=== PATIENT | male | born 1995 | race Caucasian/White ===

== ENCOUNTER 2018-06-22 17:55 | Emergency (ER) | payer OTHER, SELFPAY ==
[2018-06-22 17:58] VITALS: BP 144/86; PULSE 70; RESP 18; TEMP 36.1; O2SAT 100; BMI 18.8
--- NOTE | 2018-06-22 18:47 | PC.NURSE ---
Reports that C-1 hurts when you push on it, sore throat and tongue has bumps on it.
--- NOTE | 2018-06-22 19:04 | ED_ITS ---
HPI - URI/Sore Throat General Chief Complaint: Upper Respiratory Symptoms Stated Complaint: Vertigo, hot/cold flashes, feeling off Time Seen by Provider: 06/22/18 18:45 Source: patient Mode of arrival: ambulatory Limitations: no limitations History of Present Illness HPI Narrative: This is a 23-year-old male who comes in with multiple complaints. Patient states that his ears have felt full, he felt like there has been some reading on the right side. He has felt a little bit dizzy, he has not had any fevers, he has not had any nasal congestion, he states that the back of his throat feels bumpy but does not feel sore. He denies any difficulty with swallowing. Patient has not had any sinus pressure or tenderness. He has not had any facial swelling or swelling of the ear. He has not had any chest pain or shortness of breath, no cold cough or congestion in the chest. No nausea, no vomiting. He has had some slight constipation. No swelling in his extremities or rashes. Patient does have a history significant for pericarditis which he states was linked to a viral illness. He has also had a history of pleurisy. He denies taking any medications currently. He denies any prior surgeries. Related Data Home Medications Medication Instructions Recorded Confirmed aspirin 325 mg PO PRN #0 04/02/17 Previous Rx's Medication Instructions Recorded naproxen 500 mg PO Q12HP PRN #14 tab 04/02/17 Allergies Allergy/AdvReac Type Severity Reaction Status Date / Time No Known Drug Allergies Allergy Verified 06/22/18 18:02 Review of Systems Review of Systems All systems reviewed & are unremarkable except as noted in HPI and below Constitutional Denies body ache(s), Denies chills, Denies fatigue, Denies fever(s), Denies headache(s), Denies lethargy, Denies night sweats and Denies weakness Eyes Reports blurry vision ENT Ears, Nose, Mouth, and Throat: Reports as per HPI, Denies vertigo, Reports dizziness, Denies ear discharge, Denies otalgia, Denies facial pain, Denies headache(s), Denies hearing loss, Denies hoarseness, Denies nasal congestion, Denies neck mass, Denies odynophagia, Denies post nasal drip, Reports tinnitus ( Right ear), Denies sinus pain, Denies sinus pressure, Denies sore throat, Denies throat swelling, Denies tongue swelling and Reports other (Throat is bumpy where he touches in the back.) Cardiovascular Denies chest pain and Denies dyspnea Respiratory Denies chest congestion, Denies cough, Denies excessive phlegm production, Denies dyspnea and Denies wheezing Gastrointestinal Gastrointestinal: Denies abdominal pain, Reports change in stool character, Reports constipation (Mild), Denies nausea, Denies odynophagia and Denies vomiting Genitourinary Denies difficulty urinating Musculoskeletal Denies abnormal gait, Denies numbness and Denies tingling Integumentary/Breasts Denies erythema and Denies rash Neurologic Reports as per HPI, Denies abnormal gait, Denies vertigo, Reports dizziness, Denies headache(s), Denies lack of coordination, Denies numbness, Denies tingling and Denies weakness Endocrine Denies fatigue Allergic/Immunologic Denies throat swelling, Denies tongue swelling and Denies wheezing PFSH Family History Mother Hyperlipidemia Social History Smoking Status: Former smoker Exam Narrative Exam Narrative: GEN: well nourished but then, well appearing male, alert and oriented x 3, patient appears to be in no acute distress. HEENT: Atraumatic, pupils are equal round reactive to light, extraocular movements are intact, nares are clear, TMs retracted bilaterally, there is a very minimal amount of fluid. There is no erythema of the canal or tympanic membrane, there is no pain with motion of the pinna. Throat is clear without any exudates, erythema, tonsillar enlargement or uvular deviation, no swelling. HEART: Regular rate and rhythm without murmur, clicks, rubs. LUNGS:Lungs clear to auscultation, no wheezes, rales, crackles, chest moves symmetrically ABD:bowel sounds normal, soft, non-tender, no guarding, rebound, rigidity, no masses noted, no hepatosplenomegaly MSCL: Non-tender, no muscle atrophy, full range of motion, normal gait NEURO:CN 2-12 intact, sensation normal Initial Vital Signs Initial Vital Signs: Vital Signs Temperature 97.0 F L 06/22/18 17:58 Pulse Rate 70 06/22/18 17:58 Respiratory Rate 18 06/22/18 17:58 Blood Pressure 144/86 H 06/22/18 17:58 Pulse Oximetry 100 06/22/18 17:58 Course Orders Ordered: ED Orders 06/22/18 18:45 Influenza A and B by PCR Rapid Stat Vital Signs - 8 hr 06/22/18 17:58 Temperature 97.0 F L Pulse Rate 70 Respiratory Rate 18 Blood Pressure 144/86 H Pulse Oximetry 100 MDM - URI/Sore Throat Lab Data Lab Results 06/22/18 Range/Units 18:45 Influenza A & B (PCR) Negative (Negative) Point of Care Testing Rapid Strep A Negative MDM Narrative Medical decision making narrative: Suspect that patient has some eustachian tube dysfunction although with the tenderness he may be having labyrinthitis, or similar issue. We discussed trying a [id number] antihistamine to see if this improves his symptoms. If they are continuing he needs to follow up with primary care. To rule out other causes. If he is having any worsening symptoms or concerning symptoms he is return to the ER and these were discussed with the patient. Discharge Plan Departure Patient Disposition: Home Clinical Impression: Acute dysfunction of both eustachian tubes Discharge Date/Time: 06/22/18 19:05 Interventions: ED Discharge Assessment Last Done: 06/22/18 19:04 Instructions: DI for Eustachian Tube Dysfunction-Adult Activity Restrictions/Additional Instructions: Follow-up with primary care in the next 3-5 days if your symptoms are not resolving. Take antihistamines either Benadryl, 1-2 tablets every 6-8 hours as needed for symptoms or you may take Claritin 1 tablet [id number] daily, this is less sedating. Return to the emergency department for fevers greater than 100.4, sudden severe headaches, swelling of the face or ear, sudden loss of hearing, difficulty swallowing or pain swallowing or other new or concerning symptoms. Prescriptions: No Action aspirin 325 MG tablet 325 mg PO PRN Qty: 0 RF: 0 naproxen 500 MG tablet 500 mg PO Q12HP PRNQty: 14 RF: 0 Referrals: Kathie Umana PA-C [Primary Care Provider] -
[2018-06-22 19:10] LABS: Influenza A and B by PCR Rapid Negative (Negative)
== END 2018-06-22 19:05 | disposition home or self-care (01) ==
PROVIDERS: Emergency Provider Emergency Medicine; PCP Physician Assistant
DX: H69.83 Other specified disorders of Eustachian tube, bilateral (principal)
CPT/HCPCS: 87400; 87880; 99282; 99283

== ENCOUNTER 2021-11-14 22:23 | Emergency (ER) | payer SELFPAY ==
[2021-11-14 22:34] VITALS: BP 127/99; PULSE 95; RESP 17; TEMP 36.9; O2SAT 100; BMI 23.0
--- NOTE | 2021-11-14 22:45 | ED.ANIMALBIT ---
HPI - Animal Bite General Chief Complaint: Animal Bite Stated Complaint: hiccups for last 3 days, unable to drink today Time Seen by Provider: 11/14/21 22:44 Source: patient Mode of arrival: Ambulatory Related Data Home Medications Medication Instructions Recorded Confirmed aspirin 325 mg tablet 325 mg PO PRN #0 04/02/17 Previous Rx's Medication Instructions Recorded naproxen 500 mg tablet 500 mg PO Q12HP PRN #14 tab 04/02/17 Allergies Allergy/AdvReac Type Severity Reaction Status Date / Time No Known Drug Allergies Allergy Verified 06/22/18 18:02 Patient History Family History (Updated 02/28/17 @ 00:00 by Kathie Umana PA-C) Mother Hyperlipidemia Social History Smoking Status: Former smoker Smoking Status: Former smoker alcohol intake frequency: 3 or more drinks per day Substance Use Type: marijuana Exam Initial Vital Signs Initial Vital Signs: Vital Signs Temperature 98.5 F 11/14/21 22:34 Pulse Rate 95 H 11/14/21 22:34 Respiratory Rate 17 11/14/21 22:34 Blood Pressure 127/99 H 11/14/21 22:34 Pulse Oximetry 100 11/14/21 22:34 Course Vital Signs Vital signs: Vital Signs - 8 hr 11/14/21 22:34 Temperature 98.5 F Pulse Rate 95 H Respiratory Rate 17 Blood Pressure 127/99 H Pulse Oximetry 100 Discharge Plan Departure Prescriptions: No Action aspirin 325 MG tablet 325 mg PO PRN Qty: 0 0RF naproxen 500 MG tablet 500 mg PO Q12HP PRNQty: 14 0RF Referrals: Kathie Umana PA-C [Primary Care Provider] -
--- NOTE | 2021-11-14 22:51 | ED.ABDPAIN ---
HPI - Abdominal Pain General Chief Complaint: Abdominal Pain Stated Complaint: hiccups for last 3 days, unable to drink today Time Seen by Provider: 11/14/21 22:44 Source: patient Mode of arrival: Ambulatory History of Present Illness HPI narrative: The patient has experienced frequent hiccups for the last 3 days. He has no he cups at the time of interview. He denies head cold, rhinorrhea, sore throat or postnasal drainage. He has no cough or dyspnea. He has mild epigastric discomfort. He has vomited occasionally with the hiccups. He has a past history of GERD, he is on no medications for GERD. He drinks alcohol regularly. He smokes marijuana, he does not use other drugs. He has no fever, chills, no other GI complaints. He has no complaints. He denies history of anxiety. He is on no prescription medications. He has no history of GI surgery. Related Data Home Medications Medication Instructions Recorded Confirmed aspirin 325 mg tablet 325 mg PO PRN #0 04/02/17 Previous Rx's Medication Instructions Recorded naproxen 500 mg tablet 500 mg PO Q12HP PRN #14 tab 04/02/17 omeprazole magnesium 20 mg 20 mg PO DAILY #30 tab 11/14/21 tablet,delayed release (Prilosec OTC) Allergies Allergy/AdvReac Type Severity Reaction Status Date / Time No Known Drug Allergies Allergy Verified 06/22/18 18:02 Review of Systems Constitutional Constitutional: Reports as per HPI Patient History Medical History (Updated 11/14/21 @ 23:17 by Román Sanchez MD) No significant past medical history Surgical History (Updated 11/14/21 @ 22:56 by Román Sanchez MD) No significant past surgical history Family History Mother Hyperlipidemia Social History Smoking Status: Former smoker Smoking Status: Former smoker alcohol intake frequency: 3 or more drinks per day Substance Use Type: marijuana Exam Initial Vital Signs Initial Vital Signs: Vital Signs Temperature 98.5 F 11/14/21 22:34 Pulse Rate 95 H 11/14/21 22:34 Respiratory Rate 17 11/14/21 22:34 Blood Pressure 127/99 H 11/14/21 22:34 Pulse Oximetry 100 11/14/21 22:34 Const General: cooperative, healthy appearing, comfortable, well developed and well groomed Other: No hiccups. HENMT Head: normal to inspection, normocephalic and atraumatic Ears: TM's normal bilaterally Face and sinus: normal facial exam and sinuses nontender Mouth: oral mucosae normal Throat: posterior oropharynx normal Eyes General: Yes appearance normal, both eyes and all related structures Pupils: PERRL EOM: EOM intact bilaterally Neck Neck: normal visual inspection Chest Chest: normal inspection of the chest Resp Effort & Inspection: normal respiratory effort Auscultation: clear to auscultation bilaterally Cardio Rate: regular rate Rhythm: regular rhythm Heart Sounds: S1 normal, S2 normal and no murmurs GI Inspection: normal to inspection Palpation: soft and No mass Back/Spine/Pelvis Back: normal to inspection Skin General: no rashes or lesions noted Neuro General: patient alert, patient awake and patient oriented x3 Extrem General: normal to inspection, full ROM and no calf tenderness Psych Mental Status: mental status grossly normal Course Course Course Narrative: The patient is feeling much better after the GI cocktail. He is not expressing handcuffs. He is given for tonic prior to discharge, I will be prescribing Prilosec for the next month. He should decrease his alcohol intake and focus on good hydration with water and a good diet Orders Ordered: Pantoprazole Sodium (Pantoprazole Dr 20 Mg Tablet) 20 mg PO NOW ONE Stop: 11/14/21 23:16 Discontinued Medications Al Hydrox/Mg Hydrox/Simethicone 20 ml/ Lidocaine HCl 15 ml 0 ml PO NOW ONE Stop: 11/14/21 22:52 Last Admin: 11/14/21 22:57 Dose: 45 ml Documented by: Vital Signs Vital signs: Vital Signs - 8 hr 11/14/21 22:34 Temperature 98.5 F Pulse Rate 95 H Respiratory Rate 17 Blood Pressure 127/99 H Pulse Oximetry 100 Discharge Plan Departure Patient Disposition: Home Clinical Impression: Hiccup Instructions: Hiccups Activity Restrictions/Additional Instructions: Prilosec 20 mg daily. Decrease your alcohol intake. Focus on drinking plenty of water and being on a good diet. Follow up your doctor in 1 month, return here as needed. Prescriptions: New omeprazole magnesium [Prilosec OTC] 20 mg tablet,delayed release (DR/EC) 20 mg PO DAILY Qty: 30 0RF No Action aspirin 325 MG tablet 325 mg PO PRN Qty: 0 0RF naproxen 500 MG tablet 500 mg PO Q12HP PRNQty: 14 0RF Referrals: Kathie Umana PA-C [Primary Care Provider] -
[2021-11-14] MEDS: MAG HYDROX/ALUMINUM/SIMETH SUS 20 ML, LIDOCAINE VISCOUS 2% 15 ML PO (22:57)
[2021-11-14] MEDS: PANTOPRAZOLE DR 20 MG TABLET PO (23:28)
[2021-11-14 23:32] VITALS: BP 138/83; PULSE 93; RESP 18; O2SAT 99
== END 2021-11-14 23:33 | disposition home or self-care (01) ==
PROVIDERS: Emergency Provider Emergency Medicine; PCP Physician Assistant
DX: R06.6 Hiccough (principal); R10.13 Epigastric pain
CPT/HCPCS: 99283